=== PATIENT | male | born 1970 | race Two or more races ===

== ENCOUNTER 2018-03-19 18:51 | Emergency (ER) | payer SELFPAY ==
[~2018-03-19] VITALS: Ht 172.7 cm; Wt 77.1 kg
[2018-03-19 19:05] VITALS: BP 115/80
== END 2018-03-19 21:30 | disposition home or self-care (01) ==
LOC: ER 19:02
DX: S01.311A Laceration without foreign body of right ear, initial encounter (principal); S09.90XA Unspecified injury of head, initial encounter; Y08.89XA Assault by other specified means, initial encounter; Y93.89 Activity, other specified; Y99.8 Other external cause status; Y92.89 Other specified places as the place of occurrence of the external cause
CPT/HCPCS: 12011; 70450

== ENCOUNTER 2021-02-22 15:49 | Emergency (ER) | payer SELFPAY ==
[~2021-02-22] VITALS: Ht 177.8 cm; Wt 81.6 kg
[2021-02-22] MEDS ORDERED: SODIUM CHLORIDE 0.9% 1,000 ML IVB ONE (19:00)
[2021-02-22] MEDS ORDERED: FOLIC ACID 1 MG TAB PO ONE (19:00)
[2021-02-22] MEDS ORDERED: THIAMINE HCL 100 MG TAB PO ONE (19:00)
[2021-02-22 19:34] LABS: Basophils # (auto) 0 10 ^3/uL (0-0.2); Eosinophils # (auto) 0 10 ^3/uL (0-0.8); Lymphocytes # (auto) 0.7 10 ^3/uL (0.4-5.4); Neutrophils # (auto) 4.1 10 ^3/uL (1.6-8.6)
[2021-02-22 19:35] LABS: Basophils % (auto) 0.6 % (0.0-2.0); Eosinophils % (auto) 0.3 % (0.0-7.0); Hematocrit 42.2 % (41.0-53.0); Lymphocytes % (auto) 12.7 % (10.0-50.0); Mean Corpuscular Hemoglobin 34.9 pg (28.0-32.0); Mean Corpuscular Hgb Conc. 35.5 g/dL (32.0-36.0); Mean Corpuscular Volume 98.3 fL (80.0-100.0); Monocytes # (auto) 0.6 10 ^3/uL (0-1.3); Monocytes % (auto) 11.8 % (0.0-12.0); Neutrophils % (auto) 74.6 % (37.0-80.0); Red Blood Cells 4.29 10^6/uL (4.5-5.90); Red Cell Distribution Width 12.7 % (11.8-14.3); White Blood Cell 5.4 10^3/uL (4.4-10.8)
[2021-02-22 19:58] LABS: Alanine Aminotransferase 106 U/L (16-61); Albumin 3.7 g/dL (3.4-5.0); Anion Gap 10 (5-15); Blood Alcohol < 3.0 mg/dL (0-5); Blood Urea Nitrogen 16 mg/dL (7-18); Calcium 8.9 mg/dL (8.5-10.1); Carbon Dioxide 24 mmol/L (21-32); Chloride 97 mmol/L (98-107); Glucose 112 mg/dL (74-106); Magnesium 2.4 mg/dL (1.6-2.6); Potassium 3.1 mmol/L (3.5-5.1); Sodium 131 mmol/L (136-145)
[2021-02-22 20:01] LABS: Alkaline Phosphatase 107 U/L (45-117); Aspartate Aminotransferase 82 U/L (15-37); BUN/Creatinine Ratio 17.2; Bilirubin, Total 8.1 mg/dL (0.2-1.0); GFR African American 112 mL/min; GFR Non-African American 92 mL/min; Total Protein 7.2 g/dL (6.4-8.2)
[2021-02-23 01:30] VITALS: BP 124/70
== END 2021-02-23 02:57 | disposition home or self-care (01) ==
LOC: EDBD 15:49 → ER 15:49
DX: R55 Syncope and collapse (principal); R51.9 Headache, unspecified
CPT/HCPCS: 36415; 70450; 71046; 80053; 80320; 83605; 83735; 85025; 96360; 99285; J7030